=== PATIENT | male | born 2000 | race African-American/Black ===

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

== ENCOUNTER 2024-04-15 14:04 | Emergency (ER) | payer MEDICAID ==
[~2024-04-15] VITALS: Ht 185.4 cm; Wt 113.6 kg
[~2024-04-15 14:04] MED LIST: BO1 TP; IBUP-2030 MT
[2024-04-15 14:10] VITALS: O2SAT 100
[2024-04-15 14:15] VITALS: TEMP 36.8; O2SAT 98
[2024-04-15] MEDS ORDERED: IBUP-2030 MT (15:05)
[2024-04-15] MEDS ORDERED: AMOX1TAB16 MT (15:23)
[2024-04-15 15:33] VITALS: BP 145/93; PULSE 82; RESP 16
[2024-04-15] MEDS: IBUPROFEN 800MG TABLET PO ONE (15:33)
== END 2024-04-15 15:33 | disposition home or self-care (01) ==
LOC: ER 14:04
DX: K08.89 Other specified disorders of teeth and supporting structures (principal); Z79.899 Other long term (current) drug therapy
CPT/HCPCS: 99283